=== PATIENT | male | born 1980 | race Caucasian/White ===

== ENCOUNTER → 2017-04-10 | Outpatient (CLI) | payer OTHER ==
--- NOTE | 2017-04-11 04:58 | US ---
EXAM DESCRIPTION: Gall Bladder CLINICAL HISTORY: 36 years Male, RIGHT UPPER QUADRANT PAIN COMPARISON: None. TECHNIQUE: Grayscale, waveform, and color Doppler images of the right upper quadrant are acquired. FINDINGS: Pancreas: Not visualized secondary to bowel gas. Liver: Normal echotexture. Gallbladder: Multiple stones are seen within the gallbladder. No wall thickening. Biliary ducts: The common bile duct measures 3 mm. IMPRESSION: Cholelithiasis without findings to suggest cholecystitis. Electronically signed by: Davi Brizuela MD 04/11/2017 4:57 AM [employer]
== END | disposition home or self-care (01) ==
LOC: RAD 14:08
PROVIDERS: ATTEND Family Medicine
DX: R10.11 Right upper quadrant pain (principal)